=== PATIENT | female | born 1995 | race Caucasian/White ===

== ENCOUNTER 2022-09-29 08:18 | Outpatient (RCR) | payer OTHER, SELFPAY | END 2022-10-05 14:11 | disposition home or self-care (01) | LOC: PT 08:18 | PROVIDERS: PCP Nurse Practitioner Family; Visit Provider Nurse Practitioner Family | DX: M54.2 Cervicalgia (principal) | CPT/HCPCS: 97012; 97110; 97140 ==

== ENCOUNTER 2022-10-15 18:18 | Emergency (ER) | payer OTHER, SELFPAY ==
[2022-10-15 18:33] VITALS: BP 130/90; PULSE 94; RESP 14; TEMP 37.5; O2SAT 97; BMI 38.2
[2022-10-15 18:55] LABS: Internal Control Within Normal Limits; Strep A Antigen Screen Negative
--- NOTE | 2022-10-15 19:46 | ED.URI1 ---
HPI - URI/Sore Throat General Stated Complaint: FLU Time Seen by Provider: 10/15/22 19:46 Source: patient Limitations: no limitations History of Present Illness HPI Narrative: presents complaining of sore throat and fever for past 3 days. States spots on her tonsils. Also has mild cough. not short of breath. No chest pain or nausea. MD elicited complaint: Reports fever, cough and sore throat Related Data Allergies Allergy/AdvReac Type Severity Reaction Status Date / Time No Known Drug Allergies Allergy Verified 10/15/22 18:33 Review of Systems ROS Status of ROS 10 or more systems reviewed and unremarkable except as noted in history and below Constitutional Reports: fever PFSH PFSH Social History Smoking status: Never smoker Exam Constitutional Vital Signs - 24 hr 10/15/22 18:33 Temperature 99.5 F Pulse Rate [Monitor] 94 H Respiratory Rate 14 Blood Pressure [Left Arm] 130/90 H Pulse Oximetry 97 Oxygen Delivery Method Room Air Common normals: no apparent distress, average body habitus, oriented x3 and healthy appearing HENMT Other: oral pharynx and tonsils erythematous with cobblestoning. no obvious exudate. mild enlargement of bilat. tonsils Eye Common normals: PERRL, EOMs intact bilaterally and conjunctivae normal Neck & C-Spine Common normals: full ROM and no lymphadenopathy Respiratory Common normals: normal respiratory effort, no retractions, no use of accessory muscles and clear to auscultation bilaterally Cardio Common normals: regular rate, regular rhythm, S1 normal heart sound and S2 normal heart sound GI Common normals: Normal to inspection, nondistended, normoactive bowel sounds present, soft to palpation and non-tender Extremity Common normals: normal to inspection, normal capillary refill and no joint enlargement Neuro Common normals: oriented x3 and CN's II-XII intact bilaterally Psych Appearance: grossly normal Course Vital Signs Vital signs: Vital Signs Temperature 99.5 F 10/15/22 18:33 Pulse Rate 94 H 10/15/22 18:33 Respiratory Rate 14 10/15/22 18:33 Blood Pressure 130/90 H 10/15/22 18:33 Pulse Oximetry 97 10/15/22 18:33 Oxygen Delivery Method Room Air 10/15/22 18:33 Temperature 99.5 F 10/15/22 18:33 Pulse Rate 94 H 10/15/22 18:33 Respiratory Rate 14 10/15/22 18:33 Blood Pressure 130/90 H 10/15/22 18:33 Pulse Oximetry 97 10/15/22 18:33 Oxygen Delivery Method Room Air 10/15/22 18:33 MDM - URI/Sore Throat MDM Narrative Medical decision making narrative: patient presents with sore throat. Fever for past 3 days. Able to swallow but uncomfortable. exam with erythematous cobblestoning. Patient informed of the plan to treat with course of Amoxicillin. Strep cx pending. Discharged home and is to follow up with her family doctor Lab Data Labs: Lab Results 10/15/22 Range/Units 18:45 Streptococcus Screen Negative Discharge Plan Discharge Clinical Impression: Pharyngitis Instructions: Pharyngitis (ED) Additional Instructions: follow up with your family doctor next week for recheck Stand Alone Forms: Portal Instructions Referrals: GUNNER BEASLEY [Primary Care Provider] - 1 week
[2022-10-15] MEDS: AMOXICILLIN 500 MG CAPSULE 1000 MG PO (20:29)
== END 2022-10-15 20:34 | disposition home or self-care (01) ==
PROVIDERS: Emergency Medicine Emergency Medical Services; Emergency Provider Internal Medicine; PCP Nurse Practitioner Family
DX: J02.9 Acute pharyngitis, unspecified (principal); R50.9 Fever, unspecified
CPT/HCPCS: 87070; 87880; 99283

== ENCOUNTER 2023-10-06 14:08 | Outpatient (OUT) | payer OTHER, SELFPAY ==
[2023-10-06 16:24] LABS: Free T3 2.62 pg/mL (2.18-3.98); Thyroid Stimulating Hormone 1.938 uIU/mL (0.358-3.740)
== END 2023-10-06 14:09 | disposition home or self-care (01) ==
LOC: LAB 14:14
PROVIDERS: PCP Nurse Practitioner Family; Visit Provider Nurse Practitioner Family
DX: R63.5 Abnormal weight gain (principal)
CPT/HCPCS: 36415; 84436; 84443; 84481

== ENCOUNTER 2023-10-13 13:53 | Outpatient (RCR) | payer OTHER, SELFPAY | END 2023-11-29 11:50 | disposition home or self-care (01) | LOC: PT 13:53 | PROVIDERS: PCP Nurse Practitioner Family; Visit Provider Nurse Practitioner Family | DX: M54.2 Cervicalgia (principal) | CPT/HCPCS: 97012; 97110; 97140; 97161 ==

== ENCOUNTER 2025-03-28 19:39 | Emergency (ER) | payer OTHER, SELFPAY ==
--- OUTSIDE RECORDS SUMMARY | 2024-04-22 10:00 | XMS_ITS ---
Author Organization [facility] in [place] Address [address] [facility] [place] [address] Care Team Providers Care Forestry Support Specialist Name Role Phone Angie Marinelli Primary Care Provider REASON FOR VISIT f/u Encounters Encounter Location Date Provider Diagnosis [facility] [address] [place] [address] 04/22/2024 Angie Marinelli Plan Of Treatment No Information Progress Notes * Chris CHIU MDOB:[birth year] (30 yo F)Acc No.[id number]:04/22/2024 UNLOCKED PROGRESS NOTE Progress Note Patient: Demetrio Francisco JavierFANNIE Chris Aguirre :?Angie Marinelli ([facility]), CNPDOB:1995 ???Age:29 Y???Sex:FemaleDate:4Phone:[phone]:[address], [address], [place], [place] Subjective: * Chief Complaints: * 1 . F/u. * Medical History: Objective: * Vitals: Assessment: Plan: * Treatment: * * Electronic signature of Angie Marinelli NP, CAR STORER.MAINTENANCE TRUCK [id number] on 03/28/2025 at 08:16 PM ESTSign off status: PendingVisit Status:?OFF CANC (OFFICE CANCEL) * Provider: Tacho MOSES), MAINTENANCE TRUCK DRIVER Date: 1 06/23/2023 Generated for Printing/Faxing/eTransmitting on:?03/28/2025 08:16 PM EST
--- OUTSIDE RECORDS SUMMARY | 2024-08-28 08:15 | XMS_ITS ---
Author Organization [facility] in [place] Address [address] [place] [address] Care Team Providers Care Surg Rn Name Role Phone Angie Marinelli Primary Care Provider [phone] Luis Cavazos [phone] REASON FOR VISIT weight check Encounters Encounter Location Date Provider Diagnosis [facility] [address] [place] [address] 08/28/2024 Luis Cavazos Plan Of Treatment No Information Progress Notes * Chris CHIU MDOB:[birth year] (30 yo F)Acc No.[id number]:08/28/2024 UNLOCKED PROGRESS NOTE Nurse Visit Patient: Chris LINDER :?Kirit Cavazos ([facility]), MDDOB:1995???Age: 29 Y???Sex:FemaleDate:08/28/2024Phone:[phone]:[address], [address], [place], [place]Gtb:Angie Marinelli Subjective: * Chief Complaints: * 1 . Weight check. * Medical History: Objective: * Vitals: Assessment: Plan: * Treatment: * * Electronic signature of Luis Cavazos MD, [id number] on 03/28/2025 at 08:16 PM EST Sign off status: PendingVisit Status:?CANC (Cancelled) * Provider: Lyn Cavazos MD ([facility]) Date: 0 08/28/2024 Generated for Printing/Faxing/eTransmitting on:?03/28/2025 08:16 PM EST
--- OUTSIDE RECORDS SUMMARY | 2024-08-29 10:00 | XMS_ITS ---
Author Organization [facility] in [place] Address [address] [facility] [place] [address] Care Team Providers Care Graphics Programmer Name Role Phone Angie Marinelli Primary Care Provider REASON FOR VISIT diet Encounters Encounter Location Date Provider Diagnosis [facility] [address] [place] [address] 08/29/2024 Angie Marinelli Plan Of Treatment No Information Progress Notes * Chris CHIU MDOB:[birth year] (30 yo F)Acc No.[id number]:08/29/2024 UNLOCKED PROGRESS NOTE Progress Note Patient: Demetiro Francisco JavierFANNIE Chris Aguirre :?Angie MOSES), CNPDOB:1995 ???Age:29 Y???Sex:FemaleDate:08/29/2024Phone:[phone]:[address], [address], [place], [place] Subjective: * Chief Complaints: * 1 . Diet. * Medical History: Objective: * Vitals: Assessment: Plan: * Treatment: * * Electronic signature of Angie Marinelli NP, LEAD MASSAGE THERAPIST.SCIENTIFIC SOFTWARE DEVELOPER.[id number] on 03/28/2025 at 08:17 PM ESTSign off status: PendingVisit Status:?N/S N/C (No Show/No Charge) * Provider: Tacho MOSES), SCIENTIFIC SOFTWARE DEVELOPER Date: 0 08/29/2024 Generated for Printing/Faxing/eTransmitting on:?03/28/2025 08:17 PM EST
[2025-03-28 19:49] VITALS: BP 131/90; PULSE 70; TEMP 37.2; O2SAT 100; BMI 37.1
--- OUTSIDE RECORDS SUMMARY | 2025-03-28 20:15 | XMS_ITS | CCD ---
Author Organization [facility] CliniSyhi Care Team Providers Care Ear Pull Machine Operator Name Role Phone LUIZ Salinas, DR AGUILAR Attending Unavailabl e KARASIK ., DR AGUILAR Consulting Unavailabl e KARASIK ., DR AGUILAR Admitting Unavailabl e GALE, ANGIE Primary Care Unavailable GALE, ANGIE Primary Care Unavailable GALE, ANGIE Admitting Unavailable GALE, ANGIE Attending Unavailable GALE, ANGIE Primary Care Unavailable GALE, ANGIE Admitting Unavailable GALE, ANGIE Attending Unavailable LAURIE, DR CLAUDIA Roberson Consulting Unavailable GALE, ANGIE Primary Care Unavailable LAURIE, DR CLAUDIA Roberson Admitting Unavailable LAURIE, DR CLAUDIA Roberson Attending Unavailable CHANEL HUNT Consulting Unavailable GALE, ANGIE Primary Care Unavailable LAURIE, DR CLAUDIA Roberson Admitting Unavailable LAURIE, DR CLAUDIA Roberson Attending Unavailable LAURIE, DR CLAUDIA Roberson Consulting Unavailable EARNESTINE ., KEVIN Consulting Unavailable Unavailable Primary Care Provider Unavailabl e Gale, Angie Cooney Primary Care Unavailable Deanna Dobbins Attending Unavailable Deanna Dobbins Admitting Unavailable HILLS, KIMMY D Referring Unavailable HILLS, KIMMY D Attending Unavailable HILLS, KIMMY D Referring Unavailable LEE CARTER Attending Unavailable HILLS, KIMMY D Referring Unavailable MAKENNA, AVA Attending Unavailable HILLS, KIMMY D Referring Unavailable MAKENNA, AVA Attending Unavailable HILLS, KIMMY D Referring Unavailable MAKENNA, AVA Attending Unavailable HILLS, KIMMY D Referring Unavailable KELBLEY, WALI Attending Unavailable HILLS, KIMMY D Referring Unavailable BRINK, EMRE Attending Unavailable HILLS, KIMMY D Referring Unavailable HILLS, KIMMY D Attending Unavailable HILLS, KIMMY D Referring Unavailable KELBLEY, WALI Attending Unavailable HILLS, KIMMY D Referring Unavailable KELBLEY, WALI Attending Unavailable HILLS, KIMMY D Referring Unavailable BRINK, EMRE Attending Unavailable HILLS, KIMMY D Referring Unavailable KELBLEY, WALI Attending Unavailable HILLS, KIMMY D Referring Unavailable BRINK, EMRE Attending Unavailable HILLS, KIMMY D Referring Unavailable AIYANA CHU Attending Unavailable KELBLEY, WALI Attending Unavailable HILLS, KIMMY D Referring Unavailable Medications Current Medications MedicationDrug Class(es)DatesSig (Normalized)Sig (Original)ammonium lactate 120 mg/ml topical lotion (20 sources)Start: 05-16-2024 End: 49-31-7919qeikwmzz lactate (Lac-Hydrin) 12 % lotion Indications: Keratosis pilaris Apply to affected areas onbody daily. 396 g 11 05/16/2024 05/16/2025 Activenaproxen 500 mg oral tablet (20 sources)Nonsteroidal Anti-inflammatory DrugStart: 11-16-2919isvk 1 tablet by mouth twice daily as needednaproxen (Naprosyn) 500 MG tablet Take 500 mg by mouth 2 (two) times a day as needed 10/18/2024 Activeomeprazole 20 mg delayed release oral capsule (20 sources)Proton Pump InhibitorStart: 79-32-4394szdfiojblx (PriLOSEC) [address] capsule 12/31/2023 Activephentermine hydrochloride 37.5 mg oral tablet (20 sources)Sympathomimetic Amine AnorecticStart: 76-14-1861iknpzxqmpeu (Adipex- P) 37.5 MG tablet 02/19/2024 Activetretinoin 0.25 mg/ml topical cream (20 sources)RetinoidStart: 66-80-9146voznpvind (Retin-A) 0.025 % cream Indications: Acne vulgaris Apply to face, once daily at evening/night time, 30 day supply 45 g 11 05/16/2024 Activetriamcinolone acetonide 0.25 mg/ml topical cream (20 sources)Corticosteroidtriamcinolone (Kenalog) 0.025 % cream Apply 1 application topically in the morning and 1 application before bedtime. Active Triamcinolone Acet-Ciclopirox 0.1 & 8 % kit (20 sources)Start: 31-99-0403Utjselcmjbstd Acet-Ciclopirox 0.1 & 8 % kit 05/16/2023 Active Problems Active Problems Problem ClassificationProblemDateDocumented DateEpisodic/ChronicHeadache; including migraine (1 source)Headache; including migraine; Translations: [HEADACHE UNSPECIFIED] Onset: 69-23-8047Tbaqi disorders and dislocations; trauma-related (14 sources)Lateral subluxation of left patella, initial encounter; Translations: [Dislocation of patella, closed]39-35-2181UmqiukfiSdpld disorders and dislocations; trauma-related (14 sources)Lateral subluxation of right patella, initial encounter; Translations: [Dislocation of patella, closed]69-20-3146EkfxchtdMrwqylhtfjajmw (2 sources)Bilateral patellofemoral joint osteoarthritis; Translations: [Bilateral primary osteoarthritis of knee]59-64-7553EoeoxlrImjht female genital disorders (1 source)Other specified conditions associated with female genital organs and menstrual cycle; Translations:[OTH SPEC COND FE GEN ORG MENST CYCL]Onset: 27-92-5657VayvtzpaDcyrm non-traumatic joint disorders (2 sources)Pain in right knee; Translations: [Pain in joint, lower leg] 07-62-2647OkbxebiuLbucy screening for suspected conditions (not mental disorders or infectious disease) (4 sources)Encounter for screening for malignant neoplasm of cervix; Translations: [ENC SCREENING MALIG NEOPLASM CERV]Onset: 28-71-0255YmvvdhhrJlbfg skin disorders (2 sources)Acne vulgaris; Translations: [Acne vulgaris]25-48-1470JtjjpyibHdvmp skin disorders (2 sources)Keratosis pilaris; Translations: [Other specified epidermal thickening]82-16-6755HtfvcordWzoqsqkecew; intervertebral disc disorders; other back problems (4 sources)Cervicalgia; Translations: [CERVICALGIA]Onset: 56-14-3967Emukflzh Sprains and strains (1 source)Unspecified sprain of right thumb, initial encounter; Translations: [Unspecified sprain of right thumb, initial encounter]Onset: 47-87-6226Riaplqvj Viral infection (1 source)COVID-19; Translations: [COVID-19]Onset: 10-06-2021 Past or Other Problems Problem ClassificationProblemDateDocumented DateEpisodic/ChronicE Codes: Struck by; against (1 source)Striking against or struck by other objects, initial encounter; Translations: [STRIKING AGNST/STRUCK OTH OBJ INIT]Onset: 51-11-3804Hqxilefb Genitourinary symptoms and ill-defined conditions (4 sources)Dysuria; Translations: [DYSURIA]Onset: 27-32-4115WvuqxbzzVnwyx non- traumatic joint disorders (3 sources)Pain in right wrist; Translations: [PAIN IN RIGHT WRIST]Onset: 21-74-7730LxfkzuzzVsotlgtegih injury; contusion (2 sources)Contusion of right wrist, initial encounter; Translations: [Contusion of right hand, initial encounter]Onset: 27-09-2184YfhssaxaYqzpcfsoxpab (2 sources)Lateral subluxation of left patella, initial dnjwokxwj67-83-4963 Unclassified (2 sources)Lateral subluxation of right patella, initial epzcfzlkz63-63-2923 Results Test NameValueInterpretationReference RangeFacilityXR hand RT min 3V*on 38-18-7528IH hand RT min 3V*[facility] [place] [address] [place] [address] XRay Report Signed Patient: Chris Shaikh MR#: [id number] 18 : 1995 Acct:[id number] Age/Sex: 29 / F ADM Date: 10/17/24 Loc: ER Room: Type: [facility] ER Attending Dr: Copies to: Deanna Dobbins APRN Ordering Provider: Deanna Dobbins APRN Date of Service: 10/17/24 XR/XR hand RT min 3V*: Extremity Injury, Lower XR hand RT min 3V* 10/17/2024 9:43 PM SIGNS AND SYMPTOMS: Fall, pain in right thumb and palm and PROTOCOL: Frontal, lateral, and oblique radiographs of the right hand COMPARISON: None FINDINGS: The bones are in anatomic alignment. The joint spaces are preserved. There is no evidence of fracture or dislocation. No significant soft tissue swelling. The radiocarpal joint and carpal rows are preserved. XR/XR hand RT min 3V* IMPRESSION: No fracture or dislocation. Impression dictated by: Claudia Maguire M.D. 10/17/2024 10:03 PM Dictation Location: [place] [address] Transcribed By: [facility] 10/17/242202 Dictated By: Claudia Maguire II, MD 10/17/242201 Signed By: 10/17/242202[facility] Physician GroupXR knee BI 2Von 44-34-2120JO knee BI 2VOH[facility] [place] [address] [place] [address] XRay Report Signed Patient: Chris Shaikh MR#: [id number] [birth year] : 1995 Acct:[id number] Age/Sex: 29 / F ADM Date: 10/17/24 Loc: ER Room: Type: [facility] ER Attending Dr: Copies to: Deanna Dobbins APRN Ordering Provider: Deanna Dobbins APRN Date of Service: 10/17/24 XR/XR knee BI 2V: Extremity Injury, Lower XR knee BI 2V 10/17/2024 9:43 PM SIGNS AND SYMPTOMS: Fall, bilateral knee pain anteriorly left greater than right PROTOCOL: Frontal, lateral, and oblique radiographs of the bilateral knees COMPARISON: None FINDINGS: The weightbearing and patellofemoral joint spaces are preserved. There is no evidence of fracture. No significant soft tissue swelling. No joint effusion. XR/XR knee BI 2V IMPRESSION: No acute bony injury. Impression dictated by: Claudia Maguire M.D. 10/17/2024 10:06 PM Dictation Location: [place] [address] Transcribed By: [facility] 10/17/242205 Dictated By: Claudia Maguire II, MD 10/17/242202 Signed By: 10/17/242205[facility] Physician GroupPAP ACOG PANEL 2: to 2909-05-2022..NormalThe Our Lady Of Mercy HospitalComment on above:Performed By: #### [id number] #### [facility] [address] [place] [address] [address] Peña Sam Gdln ACOG Iveorca71-11NyfgjwBaoMemorial HospitalComment on above:Performed By: #### [id number] #### [facility] [address] [address] [address] Peña StrattonDIAGNOSIS:CommentTrinity Health System East CampusComment on above: Result Comment: NEGATIVE FOR INTRAEPITHELIAL LESION OR MALIGNANCY.Performed By: #### [id number] #### [facility] [address] [place] [address] Dr. Peña StrattonMethodology:CommentParkwood Hospital on above: Result Comment: This liquid based ThinPrep(R) pap test was screened with the use of an image guided system.Performed By: #### [id number] #### [facility] [address] [place] [address] Dr. Peña StrattonNote:CommentParkwood Hospital on above:Result Comment: The Pap smear is a screening test designed to aid in the detection of premalignant and malignant conditions of the uterine cervix. It is not a diagnostic procedure and should not be used as the sole means of detecting cervical cancer. Both false-positive and false-negative reports do occur. .Performed By: #### [id number] #### [place] [address] Dr. Peña StrattonPerformed by:CommentParkwood Hospital on above: Result Comment: Liliana Daigle, Pot Runner (ASCP)Performed By: #### [id number] #### [place] [address] Dr. Peña StrattonReflex Criteria:CommentParkwood Hospital on above:Result Comment: The HPV DNA reflex criteria were not met with this specimen result therefore, no HPV testing was performed. .Performed By: #### [id number] #### [place] [address] Dr. Peña StrattonSpecimen adequacy:CommentParkwood Hospital on above:Result Comment: Satisfactory for evaluation. No endocervical component is identified.Performed By: #### [id number] #### [facility] [address] [place] [address] Dr. Peña StrattonVAGINITIS/VAGINOSIS DNA PROBEon 66-98-9651Trvjxzm speciesNegative NormalNegativeThe [facility] on above:Performed By: #### VAGINT #### [facility] [address] [place] [address] Dr. Peña King vaginalisNegativeNormalNegativeMetrohealth [facility] Comment on above:Performed By: #### VAGINT #### [facility] [address] [address] [address] Peña Matute vaginalisNegativeNormalNegativeMetrohealth [facility] Campus [facility] Center Comment on above:Performed By: #### VAGINT #### [facility] [address] [place] [address] [address] Peña StrattonXR HAND RT MIN 3Von 03-87-4629WV HAND RT MIN 3VEXAM: XR HAND RT MIN 3V HISTORY: Joint swelling trauma, hit hand on desk COMPARISON: None. TECHNIQUE: 3 views of the hand. FINDINGS: No evidence of acute fracture or dislocation. Joint spaces are maintained. Unremarkable soft tissues. No radiopaque foreign body. IMPRESSION: No evidence of acute fracture or dislocation. Electronically authenticated by: CHANEL HUNT Date: 2022-03-14 23:53NoMemorial HospitalXR WRIST RT MIN 3 Von 46-03-6460JP WRIST RT MIN 3 VEXAM: XR WRIST RT MIN 3 V HISTORY: Joint swelling trauma COMPARISON: None. TECHNIQUE: 3 views of the wrist. FINDINGS: No evidence of acute fracture or dislocation. Joint spaces are maintained. Unremarkable soft tissues. No radiopaque foreign body. IMPRESSION: No evidence of acute fracture or dislocation. Electronically authenticated by: CHANEL HUNT Date: 2022-03-14 23:56NoMemorial HospitalCovid-19 PCR (CVDTBH)on 47-60-9459YEJR-CoV-2 (COVID-19) RNA RAMEZ+probe Ql (Unsp spec)DetectedCritically abnormalNOT DETECTEDMetrohealth Main Campus Medical CenterComment on above:Result Comment: This test is not yet approved or cleared by the [place] FDA. When there are no FDA-approved or cleared tests available, and other criteria are met, FDA can make tests available under an emergency access mechanism called an Emergency Use Authorization (EUA). The EUA for this test is supported by the Healthcare Interpreter of Health and Human Service's declaration that circumstances exist to justify the emergency use of in vitro diagnostics for the detection and/or diagnosis of the virusthat causes COVID-19. This EUA will remain in effect for the duration of the COVID-19 declaration ju stifying emergency of IVDs, unless it is terminated or revoked by the FDA (after which the test mayno longer be used).Performed By: #### CVDTBH #### [facility] [address] [place] [address] Dr. Peña Carrion URINE PROFILEon 59-55-8857Ofezqkbmw Ql (U)NegativeNormal NEGATIVEMetrohealth Main Campus Medical CenterComment on above:Performed By: #### UMICRO, PREGU, ERUR #### [facility] [address] [place] [address] Dr. Peña StrattonClarity (U)CLEARNormalCLEARMetrohealth Main Campus Medical CenterComment on above: Performed By: #### UMICRO, PREGU, ERUR #### [facility] [address] [place] [address] Dr. Peña Ramoslor (U)LT. YELLOWNormalYELLOWMetrohealth Main Campus Medical CenterComment on above:Performed By: #### UMICRO, PREGU, ERUR #### [facility] [address] [place] [address] Dr. Peña Wilder micrscopic examination will be performed if indicated. NormalThe [facility] Mercy HospitalComment on above:Performed By: #### UMICRO, PREGU, ERUR #### [facility] [address] [place] [address] Dr. Peña StrattonGlucose Ql (U)NegativeNormalNEGATIVEMetrohealth Main Campus Medical CenterComment on above:Performed By: #### UMICRO, PREGU, ERUR #### [facility] [address] [place] [address] Dr. Peña StrattonHemoglobin Ql (U)TRACE-INTACTAbnormalNEGATIVEMetrohealth Main Campus Medical CenterComment on above:Performed By: #### UMICRO, PREGU, ERUR #### [facility] [address] [place] [address] Dr. Peña StrattonKetones Ql (U)NegativeNormalNEGATIVEMetrohealth Main Campus Medical CenterComment on above:Performed By: #### UMICRO, PREGU, ERUR #### [facility] [address] [address] [address] Peña StrattonLEUKOCYTESNegativeNormalNEGATIVEThe [facility] HospitalComment on above:Performed By: #### UMICRO, PREGU, ERUR #### [facility] [address] [place] [address] [address] Peña Camaratrjere Ql (U)NegativeNormalNEGATIVEThe [facility] HospitalComment on above:Performed By: #### UMICRO, PREGU, ERUR #### [facility] [address] [address] [address] Peña StrattonpH (U)6.5 [pH]Normal5-9The [facility] HospitalComment on above: Performed By: #### UMICRO, PREGU, ERUR #### [facility] [address] [place] [address] Dr. Peña StrattonSPEC GRAVITY1.610Qjoayx8.005-<=1.025The [facility] HospitalComment on above:Performed By: #### UMICCATARINA, PREGU, ERUR #### [facility] [address] [place] [address] [address] Peña Arevalo PROTEINNegativeNormalNEGATIVE/ TRACEThe [facility] on above:Performed By: #### UMICRO, PREGU, ERUR #### [facility] [address] [address] [address] Peña Millard MICRO INDINDICATEDNormalThe [facility] HospitalComment on above: Performed By: #### UMICRO, PREGU, ERUR #### [facility] [address] [place] [address] [address] Peña Chang Qn (U)0.2 {Raheem'U}/dLNormal0.2 - 1.0The [facility] HospitalComment on above:Performed By: #### UMICRO, PREGU, ERUR #### [facility] [address] [place] [address] [address] Peña Thomas A STREP CULTUREon 10-04-2021. pyogenes Ag Ql (Unsp spec) Culture Observations: Negative for Group A StreptococcusNoSumma Health Barberton Campus on above: Performed By: #### AYAAN SMALLU, ERUR #### [facility] [address] [place] [address] Dr. Peña FinleyUENZA A AND B AGon 69-58-8230FIEIFCVNV A AGNegativeNormal NEGATIVE SEE COMMENTThe [facility] on above:Performed By: #### INFLUAB #### [facility] [address] [place] [address] Dr. Peña Gaston B AGNegativeNormalNEGATIVE SEE COMMENTThe [facility] on above:Performed By: #### INFLUAB #### [facility] [address] [place] [address] Dr. Peña StrattonINTERNAL CONTROLSWithin Normal LimitsNormalWithin Normal Limits [facility] on above:Performed By: #### INFLUAB #### [facility] [address] [place] [address] Dr. Peña StrattonPREGNANCY URon 20-02-8485EGFWXIKKN, QUALNegativeNormalNEGATIVEThe [facility] on above:Performed By: #### AYAAN SMALLU, ERUR #### [facility] [address] [place] [address] Dr. Peña StrattonSTREPT SCREENon 40-87-9966GLAMM SCREEN ANegativeNormalNEGATIVEThe [facility] on above:Performed By: #### SSCRN, GRASTCX #### [facility] [address] [place] [address] Dr. Peña StrattonURINE MICROSCOPIC ONLYon 39-20-9474NNRRCNYYIIIXJIhnzdllwUVZV SEEN The [facility] HospitalComcorewell health [facility] on above:Performed By: #### UMICCATARINA, PREGU, ERUR #### [facility] [address] [place] [address] Dr. Peña StrattonBacteria identified Cx Nom (U)NOT INDICATEDNoMemorial HospitalComment on above:Performed By: #### UMICRO, PREGU, ERUR #### [facility] [address] [address] [address] Peña SuttonSEENAbnormalNONE SEENMercy Health Clermont Hospitalment on above: Performed By: #### UMICRO, PREGU, ERUR #### [facility] [address] [address] [address] Pñea StrattonCrystals LM Nom (Urine sed)NONE SEENNormalNONE SEENMetrohealth Main Campus Medical CenterComcorewell health [facility] hospital on above:Performed By: #### UMICRO, PREGU, ERUR #### [facility] [address] [address] [address] Peña Medinathelial cells LM Ql (Urine sed)FEWAbnormalNONE SEEN /RAREThe [facility] on above:Performed By: #### UMICRO, PREGU, ERUR #### [facility] [address] [address] [address] Peña AngelALINE CASTRARENormalThe [facility] HospitalComment on above: Performed By: #### UMICRO, PREGU, ERUR #### [facility] [address] [address] [address] Peña CagleCOUSNONE SEENNormalNONE SEENJoint [facility] on above:Performed By: #### UMICRO, PREGU, ERUR #### [facility] [address] [address] [address] Peña PikeMghzwPYD9-0Olodcj5-5MxlJoint Township District [facility] Hospital on above:Performed By: #### UMICRO, PREGU, ERUR #### [facility] [address] [address] [address] Peña StrattonWBC0-2AbnormalNONE SEENJoint Township District Memorial Hospital on above: Performed By: #### UMICRO, PREGU, ERUR #### [facility] [address] [address] [address] Peña Stratton Vital Signs Date TimeVital SignValuePerforming XnvduabczXhivlire21-27-8516 15:07-0400Body lecnkt842.[address] [facility] Hospitalanne marie Folcroft [employer] Work Phone: NOWestern [facility] CenterQciwsnjbsv13-60-8280 15:07-0400Body mass index (BMI) [Ratio]38.27 kg/m2[facility] Work Phone: [facility] Ysxldwvaeu74-77-6244 15:07-0400Body .33 kgThompson Memorial Medical Center [facility] Work Phone: NOWestern [facility] CenterPzanmxbfwa45-28-7612 14:02-0400Body csilhg252.1 [facility] Work Phone: NOWestern [facility] CenterKlxldosdjj81-16-5864 14:02-0400Body mass index (BMI) [Ratio]38.27 kg/m2[facility] Work Phone: NOWestern [facility] CenterCbcmzkmvew64-70-3504 14:02-0400Body lxnuqq401.33 kgThompson Memorial Medical Center [facility] Work Phone: noVA [facility] Encounters Encounter DateEncounter TypeCare ProviderFacilityStart: 01-23-2025 End: 45-39-6848houpnjwcraSowaatd Kelbley PTANOMS Indra Physical TherapyComment on above:Lateral subluxation of left patella, initial encounter (Primary Dx); Lateral subluxation of right patella, initial encounterStart: 01-23-2025 End: 04-06-3373Dhqnsk flowsheetMelissa Kelbley [facility] Start: 01-23-2025 End: 29-20-1082Xhgidy flowsheetMelissa Kelbley [facility] Start: 01-16-2025 End: 63-70-0425Mrljidzoj encounterMelissa Kelbley [facility] Comment on above:RS PT neededStart: 01-14-2025 End: 25-20-8223excnevvcchTndplnmk Brink PTANOMS Indra Physical TherapyComment on above:Lateral subluxation of left patella, initial encounter (Primary Dx); Lateral subluxation of right patella, initial encounterStart: 01-14-2025 End: 33-90-5470Dusfzz flowsheetMarshall Brink [facility] Start: 01-14-2025 End: 99-09-3396Fjmchz flowsChadwick Thibodeaux [facility]AN[facility] Start: 01-09-2025 End: 67-71-9922gnwjvjeqfyXeugeyv Kelblegiovanna PTANOMS [facility] Physical TherapyComment on above:Lateral subluxation of left patella, initial encounter (Primary Dx); Lateral subluxation of right patella, initial encounterStart: 01-09-2025 End: 36-91-6821Kptkki flowsheetMelroman Kelazy [facility] Start: 01-09-2025 End: 56-78-7248Kdphzn flowsheetMelroman Kelazy [facility] Start: 01-07-2025 End: 43-37-4251ilrnidrqwfVzveexmg Brink PTANOMS [facility] Physical TherapyComment on above:Lateral subluxation of left patella, initial encounter (Primary Dx); Lateral subluxation of right patella, initial encounterStart: 01-07-2025 End: 05-35-2197Rzseid flowsChadwick Thibodeaux [facility] Start: 01-07-2025 End: 74-77-5989Vocgec flowsChadwick Thibodeaux [facility] Start: 12-26-2024 End: 53-55-7602eqqkhjxdisIojnwvw Kelbley PTANOMS [facility] Physical TherapyComment on above:Lateral subluxation of left patella, initial encounter (Primary Dx); Lateral subluxation of right patella, initial encounterStart: 12-26-2024 End: 22-58-8442Fivlah flowsheetMelissa Kelbley [facility] Start: 12-26-2024 End: 32-90-7716Zeoigs flowsheetMelissa Kelbley [facility] Start: 12-24-2024 End: 19-70-1087asykdolcgdHpylcel Kelbley PTANOMS [facility] Physical TherapyComment on above:Lateral subluxation of left patella, initial encounter (Primary Dx); Lateral subluxation of right patella, initial encounterStart: 12-24-2024 End: 53-14-2901Coawcw flowsheetMelissa Kelbley [facility] Start: 12-24-2024 End: 41-06-5575Cmuguk flowsheetMelissa Kelbley [facility] Start: 12-23-2024 End: 58-20-7069wxnpzakaezFACH D HILLSNot AvailableStart: 12-23-2024 End: 27-46-2004Junrhoe encounter procedureKimmy ALONSO Work Phone: [facility] OrthopaedicsComment on above: Osteoarthritis of patellofemoral joints, bilateral (Primary Dx)Start: 12-23-2024 End: 42-16-0996Kkvixc Malik Cassidy PA Work Phone: [facility] OrthopaedicsStart: 12-23-2024 End: 93-92-9235Umaodo Malik ALONSO Work Phone: [facility] OrthopaedicsStart: 12-18-2024 End: 61-37-3324yhmugaroeqIgdxtteb Brink PTANOMS Indra Physical TherapyComment on above:Lateral subluxation of left patella, initial encounter (Primary Dx); Lateral subluxation of right patella, initial encounterStart: 12-18-2024 End: 86-32-8518Yyklwy flowsheetMarshall Brink PTANOMS [facility] Start: 12-18-2024 End: 52-77-2322Znxidu flowsheetMarshall Brink PTAN[facility]S [facility] Start: 12-16-2024 End: 73-36-9523jbmyesxsztQfxnxby Kelbley PTANOMS Indra Physical TherapyComment on above:Lateral subluxation of left patella, initial encounter (Primary Dx); Lateral subluxation of right patella, initial encounterStart: 12-16-2024 End: 44-74-0132Cidphs flowsheetMelissa Kelbley PTANOMS [facility] Start: 12-16-2024 End: 12-18-2138Svwcia flowsheetMelissa Kelbley [facility] Start: 12-12-2024 End: 21-11-6380wlgpoatmdrLdbzjfb Lawrence PTANOMS Indra Physical TherapyComment on above:Lateral subluxation of left patella, initial encounter (Primary Dx); Lateral subluxation of right patella, initial encounterStart: 12-12-2024 End: 80-79-5084Ubtmlm Annika RAMIREZ [facility] Start: 12-12-2024 End: 04-16-0142Lukolr Annika RAMIREZ [facility] Start: 12-10-2024 End: 39-47-0723qozvgpfsfuVmwuutq Lawrence PTANOMS Indra Physical TherapyComment on above:Lateral subluxation of left patella, initial encounter (Primary Dx); Lateral subluxation of right patella, initial encounterStart: 12-10-2024 End: 15-34-6744Xyjbmd Annika RAMIREZ [facility] Start: 12-10-2024 End: 40-47-4335Sfrzqd Annika RAMIREZ [facility] Start: 12-06-2024 End: 46-42-4742qwpzhhpyfkMcogzmp Lawrence PTANOMS Indra Physical TherapyComment on above:Lateral subluxation of left patella, initial encounter (Primary Dx); Lateral subluxation of right patella, initial encounterStart: 12-06-2024 End: 91-29-1928Wknkpx Annika RAMIREZ [facility] Start: 12-06-2024 End: 07-17-0037Tdomlb Annika RAMIREZ [facility] Start: 11-28-2024 End: 68-50-1635Gtrycd flowsheetSlavonne Carter DAPHNENOMS [facility] Start: 11-28-2024 End: 52-75-1858Rsapvt flowsheetSammantha Carter PTNOMS [facility] Start: 11-28-2024 End: 66-30-9768jnihbmmmxkQbgkzdtgo Carter PTNOMS [facility] Comment on above:Lateral subluxation of left patella, initial encounter (Primary Dx); Lateral subluxation of right patella, initial encounterStart: 11-11-2024 End: 53-41-2755Wqaoutt encounter procedureToveronika Cassidy PA Work Phone: [facility] SWS ORTHOAOComment on above:Lateral subluxation of left patella, initial encounter (Primary Dx); Pain in both knees, unspecified chronicity; Lateral subluxation of right patella, initial encounterStart: 11-11-2024 End: 62-19-9548zdiihrwnwcNHZO D HILLSNot AvailableStart: 11-11-2024 End: 49-32-5616nvkzjasppfJPBO D HILLSNot AvailableStart: 10-17-2024 End: 41-21-9309Sdkfsnjjs department patient visitAngie Marinelli [facility]24 End: 05-41-8053Ttfnqt outpatient [address] PA Work Phone: NOMS SWS DERMComment on above:Acne vulgaris (Primary Dx); Keratosis pilarisStart: 05-16-2024 End: 06-57-5918qjidelwyniREMNA NORTHEIMNot AvailableStart: 05-16-2024 End: 32-64-1661Zekhdh [facility] PA Work Phone: N[facility] SWS DERMStart: 05-16-2024 End: 69-95-9797Wnitwg [facility] PA Work Phone: N[facility] SWS DERMStart: 08-29-2022 End: 73-60-6927swpekuyohoGH JEFF DEE .Facility:Y8Pjhql: 08-09-2022 ambulatoryPAMELA CRAMERFacility:U1Vvlfw: 03-15-2022 End: 59-60-7869hugvwyznhoIP CLAUDIA SULLIVANFacility:D7Empbp: 02-03-2022 End: 78-32-6289cqipetcoxgABEHWY CRAMERFacility:V7Gateg: 10-04-2021 End: 72-44-2263hhhabwwcrmTHZULW CRAMERFacility:H1 Plan of Treatment DateCare ActivityDetailAuthorStart: 01-23-2025 End: 44-14-7119lsbmrqszuoUOAA Indra Physical TherapyComment on above:Lateral subluxation of left patella, initial encounter (Primary Dx); Lateral subluxation of right patella, initial encounterStart: 01-16-2025 End: 04-40-9227bmeorqobwr91/18/2025 4:30 PM EDT Treatment [facility] [address] [place], [id number] Wali Roberson PTANOMS [facility]ra Physical TherapyStart: 01-14-2025 End: 47-50-9375fugkutvtccMREC [facility] Physical TherapyStart: 01-09-2025 End: 57-65-2359ddaymofpquVFQV [facility] Physical TherapyComment on above:Arrived Start: 01-07-2025 End: 03-58-6568nzlpchhzkz30/09/2025 3:30 PM EDT Treatment [facility] [address] [place], [id number] Wali Roberson PTANOMS [facility] Physical TherapyStart: 01-01-2025 End: 53-95-2576fjepnyqrsl06/03/2025 3:30 PM EDT Treatment [facility] [address] [facility] [address] [place], [id number] Lee Carter PTNOMS Indra Physical TherapyStart: 12-26-2024 End: 24-46-9800fcuiatgpocCSET [facility] Physical TherapyStart: 12-24-2024 End: 66-38-1199oyvjtwxqbu20/26/2025 3:30 PM EDT Treatment [facility] [address] [facility] [address] [place], [id number] Wali Roberson PTANOMS [facility]ra Physical TherapyStart: 12-23-2024 End: 83-91-4782Dzkorkl encounter aiaxieokv48/25/2025 3:00 PM EDT Office Visit [facility] [address] [place] [address] Kimmy Cassidy PA [address] [place] [address] [facility]Start: 12-18-2024 End: 92-58-2344quzxtgwzitGOCU [facility]ra Physical TherapyComment on above:Lateral subluxation of left patella, initial encounter (Primary Dx); Lateral subluxation of right patella, initial encounterStart: 12-16-2024 End: 18-67-0611drpvtbathsEFDY Indra Physical TherapyComment on above:Arrived Start: 12-16-2024 End: 71-74-7343Xcryqjl encounter procedureNOMS SWS ORTHOAOStart: 12-12-2024 End: 36-12-1599hqahswofnwGUIW Indra Physical TherapyComment on above:Arrived Start: 12-10-2024 End: 79-22-0842kgcyxzfpxiAVOE Indra Physical TherapyComment on above:Arrived Start: 12-06-2024 End: 06-29-5379brrddkyogzGIPU Indra Physical TherapyComment on above:Arrived Start: 12-02-2024 End: 49-49-0748qiiolqnebr56/04/2025 2:00 PM EDT Treatment [facility] [address] [facility] [address] [place], [id number] Emre Thibodeaux PTANOMS Indra Physical TherapyStart: 11-28-2024 End: 02-25-6570wrnyckklcw80/31/2025 1:30 PM EDT Evaluation [facility] [address] [facility] [address] [place] [address] Lee Carter, PT Lateral subluxation of left patella, initial encounter; Lateral subluxation of right patella, initial encounterNOMS Indra Physical TherapyComment on above:Lateral subluxation of left patella, initial encounter; Lateral subluxation of right patella, initial encounterStart: 07-15-2024 End: 32-96-0426Layswjl encounter ovbnoyubn09/17/2025 3:00 PM EDT Office Visit [facility] [address] [place] [address] Aiyana Chu PA [address] [place] [address] N[facility] DERMStart: 05-16-2024 End: 05-08-9936Vjeekxm encounter rewcoeinf13/16/2025 3:30 PM EST Office Visit [facility] [address] [place] [address] Aiyana Chu PA [address] [place] [address] ArrivedNOMS [facility] DERMComment on above:ArrivedXR Knee - right 1 or 2 ViewsXR knee 1 or 2 views right Imaging Routine Pain in both knees, unspecified chronicity 11/11/2024 11:48 AM EDTN[facility] Work Phone: Payers DatePayer CategoryPayerPolicy [id number] Health [id number] 2..1.806607.3.57[id number] 2..1.939331.3.57[id number] 2..1.177164.3.57[id number] 2.0.1.611203.3.57[id number] 2.0.1.343838.3.57[id number] 2.0.1.501784.3.57[id number] 2.16840.1.510020.3.57[id number] 2.840.1.034739.3.57[id number] 2.16840.1.263246.3.57[id number] 2.840.1.333744.3.57[id number] 2.0.1.477191.3.57[id number] 2.840.1.163054.3.57[id number] 2.0.1.387383.3.57[id number] 2.0.1.290246.3.57[id number] 2.0.1.464611.3.57[id number] 2.840.1.347736.3.57[id number] 2.0.1.979891.3.57[id number] 2.840.1.819477.3.57[id number] 2.840.1.063005.3.579.[id number] 2.840.1.603709.3.579.[id number] 2.840.1.153677.3.579.2.920611-88-8424Ctoohzs29107652564183-01-8289Neidosj [id number] 2.16.840.1.702186.3.579.2.531 Social History DateTypeDetailFacilityTobacco smoking status NHISTobacco smoking consumption unknownPARK CITY HOSPITAL HealthcareStart: 11-44-1633Ptd assigned at birthNot on [facility] HealthcareStart: 05-17-2024 End: 61-21-9852Lcwivz identityNot on [facility] HealthcareStart: 56-55-8183Eicgnyo smoking status NHISNever smoked tobaccoPARK CITY HOSPITAL HealthcareStart: 18-83-2294Fsvgiwa use and exposureSmokeless tobacco non-userPARK CITY HOSPITAL HealthcareStart: 05-17-2024 End: 73-16-9301Fmkrbon of Social functionNOVA HealthcareStart: 11-11-2024 End: 93-25-2821Jgragztip beverage intakeLifetime non-drinker (finding)[facility] Clinical Notes 05-16-2024 to 01-16-2025 Note Date & KtjaVajyUjsrkwiv11-27-0824 Telephone encounter Note* Telephone Encounter - Renetta Noguera - 01/16/2025 3:31 PM EDT She called noting her car is still in the shop and was unable to request transportation. She cx herPT this evening and RS for 01/23. [facility] SystemXwjzuwjqbc90-81-4956 Miscellaneous Notes* Telephone Encounter - Renetta Noguera - 01/16/2025 3:31 PM EDT She called noting her car is still in the shop and was unable to request transportation. She cx herPT this evening and RS for 01/23. documented in this encounterSaint Luke's Health SystemRodcvvmpug79-28-5723 History of Present illness Narrative* GAVIN Del Cid - 12/23/2024 3:00 PM EDT Images from the original note were not included. Subjective Patient ID: Chris Shaikh is a 29 y.o. female. Chief Complaint: Pain of the Left Knee and Pain of the Right Knee Last Surgery: No surgery found Last Surgery Date: No surgery found HPI Chris comes in she is doing much better she is very satisfied with her therapy she will continue therapy under their direction and call for any concerns would consider cortisone injection in the future if symptoms reverse and developed increased pain or swelling. Objective Ortho Exam Patient has improved mobility with less crepitus and better tracking since doing her physical therapy she is excited to continue therapy and feels she is getting stronger and better. She has a least 2 more scheduled this week. Image Results: Previous images were reviewed patient does have lateral subluxation of both patella right greater than left no evidence of fracture had been noted. Mediolateral compartments are well-preserved both knees. Assessment/Plan Encounter Diagnoses: Osteoarthritis of patellofemoral joints, bilateral No orders of the defined types were placed in this encounter. Follow up if symptoms worsen or fail to improve. Continue physical therapy and work on home exercise program and call for any worsening symptoms mayconsider cortisone in the future. Anti-inflammatory as previous take with food to avoid GI upset. Occasional cold pack 20 minutes several times a day we will help reduce swelling. She denies any needs for work restrictions or work notes. documented in this [facility]08-25-2025 Instructions* Patient Instructions* GAVIN Del Cid - 12/23/2024 3:00 PM EDT Continue physical therapy and work on home exercise program and call for any worsening symptoms mayconsider cortisone in the future. Anti-inflammatory as previous take with food to avoid GI upset. Occasional cold pack 20 minutes several times a day we will help reduce swelling. documented in this [facility]07-14-2025 History of Present illness Narrative* GAVIN Del Cid - 11/11/2024 2:15 PM EDT GENERAL HISTORY AND PHYSICAL: NAME: Chris Shaikh : 1995 HISTORY OF PRESENT ILLNESS: Chris Shaikh is an 29 y.o. female is here for orthopedic evaluation Bilateral knee left being greater than right pain following a fall onto her knees. She works doing [employer] and tripped and fell about 3 or 4 weeks ago and has had continued on increased discomfort on a daily basis. She is here for first-time orthopedic evaluation of her knee pain. PAST MEDICAL HISTORY: History reviewed. No pertinent past medical history. PAST SURGICAL HISTORY: History reviewed. No pertinent surgical history. SOCIAL HISTORY: Social History Occupational History Not on file Tobacco Use Smoking status: Never Smokeless tobacco: Never Vaping Use Vaping status: Never Used Substance and Sexual Activity Alcohol use: Never Drug use: Never Sexual activity: Not on file ALLERGIES: No Known Allergies MEDICATIONS: Current Outpatient Medications Medication Instructions ammonium lactate (Lac-Hydrin) 12 % lotion Apply to affected areas on body daily. naproxen (NAPROSYN) 500 mg, 2 times daily PRN omeprazole (PriLOSEC) [address] capsule phentermine (Adipex-P) 37.5 MG tablet tretinoin (Retin-A) 0.025 % cream Apply to face, once daily at evening/night time, 30 day supply triamcinolone (Kenalog) 0.025 % cream 1 application , 2 times daily Triamcinolone Acet-Ciclopirox 0.1 & 8 % kit REVIEW OF SYSTEMS: Review of Systems General: Denies appetite or significant weight change. Denies fever, chills or night sweats. Denies lightheadedness. ENT: Denies dry mouth, sore throat or swollen glands. Denies difficulty swallowing. Denies ear pain. Respiratory: Denies chest pain, SOB, cough or wheezing. Denies asthma or pneumonia symptoms. Cardiovascular: Denies CP or palpitations. No syncope or dyspnea on exertion. Gastrointestinal: Denies nausea or vomiting. Denies heartburn or abdominal pain. Denies diarrhea. Genitourinary: Denies frequent or painful urination. Musculoskeletal: See HPI for comments. Integumentary: Denies rash, lesion or skin infection. Neurologic: Denies dizziness, headache or seizure history. Vitals: Body mass index is 38.27 kg/m . PHYSICAL EXAM: Physical Exam She certainly has more tenderness to palpate the tracking of the left kneecap with no significant instability she does have J tracking of both patella and crepitus bilateral. Mediolateral collateral ligaments are stable there is no associated pain with tibial torsion or Oneil's she has near fullextension bilaterally with flexion of 110 degrees. Maintains good internal external rotation of both hips. No evidence of radicular symptoms stemming from the lumbar spine. Orders Placed This Encounter Procedures XR knee 1 or 2 views right Is the patient ?: No Reason for exam:: pain Ambulatory referral to Physical Therapy Standing Status: Future Expected Date: 11/11/2024 Expiration Date: 05/14/2025 Referral Priority: Routine Referral Type: Rehabilitation - Outpatient Referral Reason: Specialty Services Required Referred to Provider: Jovany Kendall PT Requested Specialty: Physical Therapy Number of Visits Requested: 1 No image results found. ASSESSMENT: Lateral subluxation of left patella, initial encounter Pain in both knees, unspecified chronicity Lateral subluxation of right patella, initial encounter PLAN: Cold pack to both knees for 20 minutes several times a day use the patellar lateral compression knee brace for support during waking hours. . Consider anti- inflammatory medicine on a more routine basis with ibuprofen up to 600 mg every 8 hours with food to avoid GI upset. We will follow up with recheck in 5 weeks following the physical therapy and consider cortisone injection for persistent swelling or discomfort. Tylenol for breakthrough discomfort up to 3000 mg a day divided in 3-4 doses. GAVIN Del Cid documented in this [facility]07-14-2025 Instructions* Patient Instructions* GAVIN Del Cid - 11/11/2024 2:15 PM EDT Cold pack to both knees for 20 minutes several times a day use the patellar lateral compression knee brace for support during waking hours. . Consider anti- inflammatory medicine on a more routine basis with ibuprofen up to 600 mg every 8 hours with food to avoid GI upset. We will follow up with recheck in 5 weeks following the physical therapy and consider cortisone injection for persistent swelling or discomfort. Tylenol for breakthrough discomfort up to 3000 mg a day divided in 3-4 doses. documented in this [facility]01-16-2025 History of Present illness Narrative* GAVIN Pride - 05/16/2024 3:30 PM EST Images from the original note were not included. Acne Location: face, chest, back Duration: years Severity: mild with some scarring on her face Nature of acne: pimples Modifying factors: worse during menses Associated Factors: dry skin Treatments used in the past: OTC acne products Current treatment: exfoliates about once per week, warm water rinse, moisturizes with Ponds. New patient Rash Location: back, arms, and chest Duration: months Severity: moderate Quality: itchy Modifying Factors: improved with scratching Associated symptoms: hx of atopic derm, but patient feels this is different. She uses triamcinolonefor this, but has not tried to apply on the arms. Current treatments: none All pertinent medical history, medications, and allergies were reviewed. General Exam: alert, oriented to person, place, and time, normal affect, well appearing Unaccompanied A focused exam completed based on patient reported problems, see below: 1. Acne vulgaris Chest (Upper Torso, Anterior), Head - Anterior (Face), Torso - Posterior (Back) Scattered comedones and inflammatory pustules. Flaring today Patient was counseled that this condition is chronic and can be controlled, but not cured. The patient and/or parent were counseled that it may take up to 2-3 months to notice significant improvement of the acne. Acne treatment plan given today. Start tretinoin 0.025% cream once nightly. Apply pea size amount to face every other night until tolerated Will see the patient back in 2 months. Related Medications tretinoin (Retin-A) 0.025 % cream Apply to face, once daily at evening/night time, 30 day supply 2. Keratosis pilaris Red erythematous bumps. Discussed that this is a normal variant and treatment can be challenging. Can try topical emollients to help with skin texture. Will have the patient start Ammonium Lactate lotion, apply to skin daily for maintenance. ammonium lactate (Lac-Hydrin) 12 % lotion Apply to affected areas on body daily. Next Visit: 2 months documented in this encounterPAR[facility] HealthcareEvaluation note* Diagnosis Acne vulgaris- Primary Other acne Keratosis pilaris Other specified congenital anomaly of skin documented in this encounter [facility] HealthcareEvaluation note* Diagnosis Lateral subluxation of left patella, initial encounter- Primary Pain in both knees, unspecified chronicity Lateral subluxation of right patella, initial encounter documented in this encounter [facility] HealthcareEvaluation note* Diagnosis Lateral subluxation of left patella, initial encounter- Primary Lateral subluxation of right patella, initial encounter documented in this encounter [facility] note* Diagnosis Lateral subluxation of left patella, initial encounter- Primary Lateral subluxation of right patella, initial encounter documented in this encounter [facility]Evaluation note* Diagnosis Lateral subluxation of left patella, initial encounter- Primary Lateral subluxation of right patella, initial encounter documented in this encounter [facility]* Diagnosis Lateral subluxation of left patella, initial encounter- Primary Lateral subluxation of right patella, initial encounter documented in this encounter [facility] note* Diagnosis Lateral subluxation of left patella, initial encounter- Primary Lateral subluxation of right patella, initial encounter documented in this encounter [facility] note* Diagnosis Osteoarthritis of patellofemoral joints, bilateral- Primary documented in this encounter [facility]* Diagnosis Lateral subluxation of left patella, initial encounter- Primary Lateral subluxation of right patella, initial encounter documented in this encounter [facility]* Diagnosis Lateral subluxation of left patella, initial encounter- Primary Lateral subluxation of right patella, initial encounter documented in this encounter [facility] HealthcareEvaluation note* Diagnosis Lateral subluxation of left patella, initial encounter- Primary Lateral subluxation of right patella, initial encounter documented in this encounter [facility] HealthcareReason for visit Narrative* Rehabilitation - Outpatient (Routine) - Pending ReviewSpecialtyDiagnoses / ProceduresReferred By ContactReferred To ContactPhysical Therapy Diagnoses Lateral subluxation of left patella, initial encounter Lateral subluxation of right patella, initial encounter Procedures [place] OFFICE/OUTPATIENT [facility] 60 MINUTES Kimmy Cassidy PA [address] [place] [address] Phone: tel: fax: [facility] [address] [facility] [address] [place] [address] Phone: tel: fax: Referral IDStatusReasonStart DateExpiration DateVisits RequestedVisits [id number] Review Specialty Services Required [facility] for visit Narrative* Rehabilitation - Outpatient (Routine) - AuthorizedSpecialtyDiagnoses / ProceduresReferred By ContactReferred To ContactPhysical Therapy Diagnoses Lateral subluxation of left patella, initial encounter Lateral subluxation of right patella, initial encounter Procedures IA OFFICE/OUTPATIENT [facility] 60 MINUTES Kimmy Cassidy PA [address] [place] [address] Phone: tel: fax: [facility] [address] [address] Phone: tel: fax: Referral IDStatusReasonStart DateExpiration DateVisits RequestedVisits [id number] Specialty Services Required [facility] for visit Narrative* Rehabilitation - Outpatient (Routine) - ClosedSpecialtyDiagnoses / ProceduresReferred By ContactReferred To Contact Physical Therapy Diagnoses Lateral subluxation of left patella, initial encounter Lateral subluxation of right patella, initial encounter Procedures IA OFFICE/OUTPATIENT [facility] MDM 60 MINUTES Kimmy Cassidy PA [address] [place] [address] Phone: tel: fax: [facility] [address] [address] Phone: tel: fax: Referral IDStatusReasonStart DateExpiration DateVisits RequestedVisits [id number] Specialty Services Required [facility] Summary Purpose Family History No Family History Records FoundNo Family History Records FoundNo Family History Records Found Advance Directives No Advanced Directives Records FoundNo Advanced Directives Records FoundNo Advanced Directives Records Found Additional Source Comments INFORMATION SOURCE (unrecogn ized section and content) DATE CREATED AUTHOR 09/07/2022 [facility] DATE CREATED AUTHOR AUTHOR'S ORGANIZ ATION 11/17/2024 [facility] DATE CREATED AUTHOR AUTHOR'S ORGANIZ ATION 01/31/2025 [facility] EPIC Reason for Visit (unrecogniz ed section and content) ReasonCommentsAcneReasonCommentsPainReasonCommentsPainReasonOnset DateCommentsRS PT ebuutn1301/16/2025 FOR RECORDS PERTAINING TO PATIENTS WHO ARE OR HAVE BEEN ENROLLED IN A CHEMICAL DEPENDENCY/SUBSTANCEABUSE PROGRAM, SOME INFORMATION MAY BE OMITTED. This clinical summary was aggregated from multiple sources. Caution should be exercised in using it in the provision of clinical care. This summary normalizes information from multiple sources, and as a consequence, information in this document may materially change the coding, format and clinical context of patient data. In addition, data may be omitted in some cases. CLINICAL DECISIONS SHOULD BE BASED ON THE PRIMARY CLINICAL RECORDS. [employer] [facility]. provides no warranty or guarantee of the accuracy or completeness of information in this document.
--- OUTSIDE RECORDS SUMMARY | 2025-03-28 20:17 | XMS_ITS | Patient Health Record ---
Author Organization [facility] in [place] Address [address] [place] [address] Care Team Providers Care Occupational Therapy Program Director Name Role Phone Angie Marinelli Primary Care Provider Dirk Luis Arias [phone] Allergies No Known Allergies Reason For Referral No Information Medications Medication SIG (Take, Route, Frequency, Duration) Notes Start Date End Date Status Adipex-P 37.5 MG 1 tablet before breakfast Orall y Once a day; Duration: 30 days 5ActiveOmeprazole 20 MG1 capsule 30 minutes before morning meal Orally Once a day; Duration: 30 days4ActiveTriamcinolone Acetonide 0.1 %1 application Externally Two times a WeekPRNActive Social History Tobacco Use: Social History Observation Description Date Details (start date - stop date) Never Smoker NA - NA Tobacco Control (Standard) Question Answer Notes Tobacco use: Nonsmoker AUDIT-C (Standard) Question Answer Notes Did you have a drink containing alcohol in the p ast year? No Gwgkqe0NdbzjdbyywbspjUmsmcjdc Problems Problem Type SNOMED Code ICD Code Onset Dates Problem Status W/U Status Risk Notes Problem Gastroesophageal ref lux disease (348860813) GERD (gastroesophageal reflux disease) (K21.9) ActiveconfirmedProblemObese class II (213747482462440)BMI 39.0-39.9,adult (Z68.39)ActiveconfirmedProblemObese class II (finding) (878353615384610)Class 2 obesity (E66.9)Activeconfirmed Vital Signs Blood pressure diastolic 70 mm Hg 10/04/2024 Bwttlw52 in10/04/2024lood pressure aouayifd529 mm Hg10/04/20243891Zbclgn283.2 lbs 10/04/2024BMI36.18 kg/m210/04/2024 Encounters Encounter Location Date Provider Diagnosis [facility] [address] [place] [address] 04/19/2024 Angie Marinelli Class 2 obesity E66.9 [facility] [address] [place] [address] 05/23/2024 Angie Marinelli Class 2 obesity E66.9 [facility] [address] [place] [address] 10/04/2024 Angie Marinelli GERD (gastroesophageal reflux disease) K21.9 [facility] [address] [place] [address] 06/27/2024 Angie Marinelli Class 2 obesity E66.9 [facility] [address] [place] [address] 07/30/2024 Lusi Hoy Class 2 obesity E66.9 [facility] [address] [place] [address] 06/27/2024 Angie Marinelli Class 2 obesity E66.9 [facility] [address] [place] [address] 07/30/2024 Luis Hoy Class 2 obesity E66.9 [facility] [address] [place] [address] 08/26/2024 Angie Marinelli [facility] [place] [address] 11/26/2024Angie MarinelliClass 2 obesity E66.9 Assessments Encounter Date Diagnosis (ICD Code) Assessment Notes Treatment Notes Treatment Clinical Notes Section Notes 04/19/2024 Class 2 obesity (ICD-10 - E66.9) work on diet exercise fu one month 05/23/2024lass 2 obesity (ICD-10 - E66.9) continue to work on diet and exercise sustainable lifestyle changes fu [place] for weight check when needs refills fu me 3 months 06/27/2024lass 2 obesity (ICD-10 - E66.9)5Class 2 obesity (ICD-10 - E66.9)10/04/2024GERD (gastroesophageal reflux disease) (ICD-10 - K21.9)work on diet and wt loss5Class 2 obesity (ICD-10 - E66.9)5Class 2 obesity (ICD-10 - E66.9)5Class 2 obesity (ICD-10 - E66.9)fu one month Plan Of Treatment Pending Test Test Name Order Date CULTURE, STOOL 02/06/2024 C DIFF TOX PCR STOOL 02/06/2024 THYROID PANEL (T4/TSH/FREE T3) 4 Insurance Providers Payer Name Payer Address Payer Phone Subscriber Number Group Number Insured Name Patient Relationship to Insured Coverage Start Date Coverage End Date [employer] [place] [employer] [address] [place] [address] [id number] Destinee Morfin - patient is the insured Medical (General) History Medical History History ICD Code Anxiety F41.9 COVID-19 U07.1 Dyspareunia 625.0 Insomnia G47.00 Occipital lymphadenopathy R59.0 Plantar fasciitis M72.2 Surgical History Surgery Date(Month/Year) denies Hospitalization History Reason Date(Month/Year) denies
--- OUTSIDE RECORDS SUMMARY | 2025-03-28 20:17 | XMS_ITS | Clinical Summary ---
Author Organization [facility] Address [id number] [place] [address] Care Team Providers Care Shuttler Name Role Phone Unavailable Primary Care Provider Unavailabl e Allergies No known active allergies Medications MedicationSigDispense QuantityRefillsLast FilledStart DateEnd DateStatus triamcinolone (KENALOG) 0.025 % cream Apply 1 application topically 2 (two) times a day.Active ibuprofen (ADVIL,MOTRIN) 200 mg tablet Take 200 mg by mouth every 6 (six) hours as needed for pain.Active Active Problems ProblemNoted DateDiagnosed DateTonsillar unsfnsznslm73/04/2021Chronic wqbiskysuiu99/04/2021Nasal septal dgcvylxuf39/04/2021 Social History Tobacco UseTypesPacks/DayYears UsedDateSmoking Tobacco: NeverSmokeless Tobacco: NeverAlcohol UseStandard Drinks/WeekCommentsNot Currently0 (1 standard drink = 0.6 oz pure alcohol)PHQ-2AnswerDate RecordedTotal Zhffd144hildcare AnswerDate HdlyixdbAsfniqqgeByqakxw84/12/2019EmploymentAnswerDate Recorded AoxwipgbccDfobmip88/12/2019CommentsUnknownSex and Gender Information ValueDate RecordedSex Assigned at BirthNot on fileLegal NfbUadxuz83/24/2016 11:40 AM ESTGender IdentityNot on fileSexual OrientationNot on file Last Filed Vital Signs Vital SignReadingTime TakenCommentsBlood Truycsei395/68009/01/2020 2:37 PM EDT Pulse--Temperature--Respiratory Rate--Oxygen Saturation--Inhaled Oxygen Concentration--Idcckp29.7 kg (200 lb)09/01/2020 2:37 PM GYEUzhbxo718.1 cm (5' 5 )09/01/2020 2:37 PM EDTBody Mass Index33.2801 2:37 PM EDT Plan of Treatment Health MaintenanceDue DateLast DoneCommentsDepression Foscisgqk73/24/2005Tobacco Gdtyjlomv55/24/2005Adult BMI Tgsxsueju64/24/2011DTaP,Tdap and Td Vaccines (1 - Tdap)02/22/2012Pap Smear2014Influenza Ccisppw2312/30/2024 Medical Devices Not on file
--- OUTSIDE RECORDS SUMMARY | 2025-03-28 20:17 | XMS_ITS | Clinical Summary ---
Author Organization [facility] Address [address] [place] [address] Care Team Providers Care Soil And Plant Scientist Name Role Phone Unavailable Primary Care Provider Unavailabl e Allergies No known active allergies Medications MedicationSigDispense QuantityRefillsLast FilledStart DateEnd DateStatus omeprazole (PriLOSEC) [address] capsule 12/31/2023ctive phentermine (Adipex-P) 37.5 MG tablet 02/19/2024ctive Triamcinolone Acet-Ciclopirox 0.1 & 8 % kit 05/16/2023ctive triamcinolone (Kenalog) 0.025 % cream Apply 1 application topically in the morning and 1 application before bedtime. Active tretinoin (Retin-A) 0.025 % cream Indications:Acne vulgarisApply to face, once daily at evening/night time, 30 day supply 45 g 1105Active ammonium lactate (Lac-Hydrin) 12 % lotion Indications:Keratosis pilarisApply to affected areas on body daily. 396 g 110506Active naproxen (Naprosyn) 500 MG tablet Take 500 mg by mouth 2 (two) times a day as yvcvjx305Active Active Problems No known active problems Encounters DateTypeDepartmentCare QftsGkvkqnbydcv73/25/2025 3:00 PM EDTTreatment [facility] [address] [facility] [address] [place] [address] Sintia Roberson, DISTRIBUTION SYSTEMS SERVICEPERSON Lateral subluxation of left patella, initial encounter (Primary Dx); Lateral subluxation of right patella, initial xhxzuonds39/25/2025amboo flowsheet [facility] [address] [facility] [address] [place] [address] Sintia Roberson, DISTRIBUTION SYSTEMS SERVICEPERSON 01/23/20250541Gzhvwg60/18/2025Telephone [facility] [address] [facility] [address] [place] [address] Sintia Roberson, DISTRIBUTION SYSTEMS SERVICEPERSON RS PT mmziwu4501/14/2025 3:30 PM EDTTreatment [facility] [address] [facility] [address] [place] [address] Emre Thibodeaux, DISTRIBUTION SYSTEMS SERVICEPERSON Lateral subluxation of left patella, initial encounter (Primary Dx); Lateral subluxation of right patella, initial vhcxdnjze83/16/2025amboo flowsheet [facility] [address] [facility] [address] [place] [address] Emre Thibodeaux, DISTRIBUTION SYSTEMS SERVICEPERSON 01/14/20257044Efhtlv49/11/2025 4:30 PM EDTTreatment [facility] [address] [facility] [address] [place] [address] Sintia Roberson, DISTRIBUTION SYSTEMS SERVICEPERSON Lateral subluxation of left patella, initial encounter (Primary Dx); Lateral subluxation of right patella, initial zheahzmla46/11/2025amboo flowsheet [facility] [address] [facility] [address] [place] [address] SergeSintia degroot, DISTRIBUTION SYSTEMS SERVICEPERSON 01/09/20253827Yryrtp86/09/2025 5:00 PM EDTTreatment [facility] [address] [facility] [address] [place] [address] Emre Thibodeaux, DISTRIBUTION SYSTEMS SERVICEPERSON Lateral subluxation of left patella, initial encounter (Primary Dx); Lateral subluxation of right patella, initial ywuqfpuel36/09/2025amboo flowsheet [facility] [address] [facility] [address] [place] [address] Emre Thibodeaux, DISTRIBUTION SYSTEMS SERVICEPERSON 01/07/20259728Ibvrcw08/28/2025 4:30 PM EDTTreatment [facility] [address] [facility] [address] [place] [address] Sintia Roberson, DISTRIBUTION SYSTEMS SERVICEPERSON Lateral subluxation of left patella, initial encounter (Primary Dx); Lateral subluxation of right patella, initial tqpuwllew10/28/2025amboo flowsheet [facility] [address] [place] [address] [place] [address] Sintia Roberson, DISTRIBUTION SYSTEMS SERVICEPERSON 12/26/2024Travelfrom Last 3 Months Social History Tobacco UseTypesPacks/DayYears UsedDateSmoking Tobacco: NeverSmokeless Tobacco: Never Tobacco Cessation:Counseling Given: Not Answered Alcohol UseStandard Drinks/WeekCommentsNever0 (1 standard drink = 0.6 oz pure alcohol)CommentsUnknownSex and Gender InformationValueDate RecordedSex Assigned at BirthNot on fileLegal YrhHxoocn95/15/2023 7:35 PM EDTGender IdentityNot on fileSexual OrientationNot on file Last Filed Vital Signs Vital SignReadingTime TakenCommentsBlood Wwouvuem451/8105 12:00 PM EDT Pulse--Temperature--Respiratory Rate--Oxygen Saturation--Inhaled Oxygen Concentration--Bzhyyb324 kg (230 lb)12/23/2024 3:07 PM QAEYefswm068.1 cm (5' 5 ) 12/23/2024 3:07 PM EDTBody Mass Index38.2708 3:07 PM EDT Plan of Treatment Not on file Insurance
[2025-03-28] MEDS: AMOXICILLIN 500 MG CAPSULE PO (20:30)
[2025-03-28] MEDS: HYDROCODONE/ACET 5-325 MG TABLET 1 TAB PO (20:30)
--- NOTE | 2025-03-29 00:37 | ED.GENADUL1 ---
HPI HPI - General Adult General Chief complaint: Dental/Oral Stated complaint: TOOTH ACHE Time Seen by Provider: 03/28/25 19:45 Source: patient Mode of arrival: walk-in History of Present Illness HPI narrative: Patient is a 30-year-old female presenting to the emergency department for evaluation of the left upper molar tooth infection. Patient is requesting antibiotics. She states she has been having intermittent toothache for the last few weeks. However, today, the pain significantly worsened. Other than pain in the left upper part of her molar, she denies any other symptoms. She has no fevers or chills. She has no trouble swallowing or speaking. She is otherwise asymptomatic with no systemic symptoms. Related Data Previous Rx's ?Medication ?Instructions ?Recorded amoxicillin 500 mg tablet 500 mg PO Q8H 7 days #21 tabs 03/28/25 Allergies Allergy/AdvReac Type Severity Reaction Status Date / Time No Known Drug Allergies Allergy Verified 03/28/25 19:48 Opioid HPI Opioid Management Most Recent Opioid Data: Last JUN Pain Assessment 03/28/25, 20:30 Review of Systems ROS Status of ROS 10 or more systems reviewed and unremarkable except as noted in history and below PFSH PFS Social History Smoking status: Never smoker Little interest or pleasure in doing things: not at all Feeling down, depressed, or hopeless: not at all Exam Narrative Exam Narrative: CONSTITUTIONAL: Well-appearing, answering questions and following commands appropriately SKIN: Was warm and dry. EYES: Sclerae white. EARS, NOSE, THROAT: There is poor dentition/dental carry in the left upper molar with tenderness to percussion. No trismus. No neck swelling. Speaking with a normal voice. No facial swelling. RESPIRATORY: Nonlabored respirations CARDIOVASCULAR: Normal rate and regular rhythm. There is no S3, S4, murmur, rub. GASTROINTESTINAL: Abdomen is nondistended. MUSCULOSKELETAL: No peripheral edema. NEUROLOGIC: Patient is awake and alert. Facies were symmetrical. Constitutional Vital Signs, click to edit/add: Last Vital Signs Temp 99.0 F 03/28/25 19:49 Pulse 70 03/28/25 19:49 Resp 20 03/28/25 19:49 BP 131/90 03/28/25 19:49 Pulse Ox 100 03/28/25 19:49 O2 Del Method Room Air 03/28/25 19:49 Course Vital Signs Vital signs: Vital Signs Temperature 99.0 F 03/28/25 19:49 Pulse Rate 70 03/28/25 19:49 Respiratory Rate 20 03/28/25 19:49 Blood Pressure 131/90 03/28/25 19:49 Pulse Oximetry 100 03/28/25 19:49 Oxygen Delivery Method Room Air 03/28/25 19:49 Temperature 99.0 F 03/28/25 19:49 Pulse Rate 70 03/28/25 19:49 Respiratory Rate 20 03/28/25 19:49 Blood Pressure 131/90 03/28/25 19:49 Pulse Oximetry 100 03/28/25 19:49 Oxygen Delivery Method Room Air 03/28/25 19:49 Medical Decision Making MDM Narrative Medical decision making narrative: Patient's history and physical examination is consistent with mild odontogenic infection. There is no evidence of significant abscess formation and I have very low concern for any impending airway compromise. She is afebrile and hemodynamically stable. Patient was given a dose of amoxicillin in the ED, and a prescription for amoxicillin x 7 days was sent to her pharmacy. She was instructed follow-up with her dentist for further care. Return precautions were given including any new or concerning symptoms. Patient understands and agrees to the plan. FINAL IMPRESSION: #Acute left upper molar dental infection DISPOSITION: Discharged home CONDITION: Good Discharge Plan Discharge Chief Complaint: Dental/Oral Clinical Impression: Infected tooth Patient Disposition: Home, Self-Care Time of Disposition Decision: 20:07 Condition: Good Mode of Transportation: Private Vehicle Prescriptions / Home Meds: New amoxicillin 500 mg tablet 500 mg PO Q8H 7 Days Qty: 21 0RF Print Language: Romanian Referrals: GUNNER BEASLEY [Primary Care Provider, Family Practice] - 1 week Discharge Date/Time: 03/28/25 20:37
== END 2025-03-28 20:37 | disposition home or self-care (01) ==
PROVIDERS: Emergency Provider Student in an Organized Health Care Education/Training Program; PCP Nurse Practitioner Family
DX: K04.7 Periapical abscess without sinus (principal); K08.89 Other specified disorders of teeth and supporting structures
CPT/HCPCS: 99283